=== PATIENT | female | born 1975 | race African-American/Black ===

== ENCOUNTER 2016-10-18 19:57 | Emergency (ER) | payer SELFPAY ==
[~2016-10-18] VITALS: Ht 165.1 cm; Wt 71.0 kg
[2016-10-19 03:54] VITALS: BP 115/67
== END 2016-10-19 03:58 | disposition home or self-care (01) ==
LOC: ER 19:57
DX: S16.1XXA Strain of muscle, fascia and tendon at neck level, initial encounter (principal); S39.012A Strain of muscle, fascia and tendon of lower back, initial encounter; M25.561 Pain in right knee; V49.49XA Driver injured in collision with other motor vehicles in traffic accident, initial encounter; Y93.89 Activity, other specified; Y92.415 Exit ramp or entrance ramp of street or highway as the place of occurrence of the external cause
CPT/HCPCS: 72040; 72100; 72125; 81025; 99284